=== PATIENT | female | born 1975 | race Hispanic/Latino ===

== ENCOUNTER 2025-03-07 17:50 | Emergency (ER) | payer SELFPAY ==
[~2025-03-07] VITALS: Ht 167.6 cm; Wt 90.7 kg
[2025-03-07 18:24] VITALS: TEMP 98.7
[2025-03-07] MEDS ORDERED: KETOROLAC TROMETHAMINE 30 MG/ML VIAL ONE (19:58)
[2025-03-07] MEDS ORDERED: SODIUM CHLORIDE 0.9% 1000ML 1,000 ML ONE (19:58)
[2025-03-07] MEDS ORDERED: CEFTRIAXONE 1 GM VIAL ONE (19:58)
[2025-03-07] MEDS: KETOROLAC TROMETHAMINE 30 MG/ML VIAL IV STA (20:03)
[2025-03-07] MEDS: SODIUM CHLORIDE 0.9% 1000ML 1,000 ML IV ONE (20:03)
[2025-03-07 20:11] LABS: BASOPHILS # (AUTO) 0.1 (0.0-0.1); BASOPHILS % 0.5 % (0.0-1.0); EOSINOPHILS # (AUTO) 0.2 (0.0-0.4); EOSINOPHILS % 1.8 % (0.0-6.0); HEMATOCRIT 39.3 % (34.2-44.1); HEMOGLOBIN 11.9 g/dL (12.0-16.0); LYMPHOCYTES # (AUTO) 2.8 (1.0-3.2); LYMPHOCYTES % 23.9 % (18.0-39.1); MEAN CORPUSCULAR HEMOGLOBIN 26.8 pg (28-32); MEAN CORPUSCULAR HGB CONC 30.3 g/dL (31-35); MEAN CORPUSCULAR VOLUME 88.5 fL (81-99); MONOCYTES # (AUTO) 1.1 (0.2-0.8); MONOCYTES % 9.3 % (4.4-11.3); NEUTROPHILS # (AUTO) 7.6 (2.1-6.9); NEUTROPHILS % 64.1 % (38.7-80.0); PLATELET COUNT 380 x10e3/uL (140-360); RED BLOOD COUNT 4.44 x10e6/uL (3.6-5.1); RED CELL DISTRIBUTION WIDTH 13.9 % (11.7-14.4); WHITE BLOOD COUNT 11.81 x10e3/uL (4.8-10.8)
[2025-03-07 20:33] LABS: BILIRUBIN,TOTAL 0.3 mg/dL (0.2-1.2); CALCIUM 9.7 mg/dL (8.4-10.2); TOTAL PROTEIN 8.2 g/dL (6.5-8.1)
[2025-03-07] MEDS ORDERED: IOPAMIDOL 370 MG/ML 100 ML INFUS..BTL INJ ONE (20:48)
[2025-03-07 22:54] VITALS: BP 132/76; PULSE 86; RESP 18; TEMP 98.2
[2025-03-07] MEDS: ONDANSETRON HCL INJ 2MG/ML 2ML 2 MG/ML VIAL IV STA (23:13)
[2025-03-07] MEDS: Morphine 4mg INJECTION 4 MG/ML INJ IV ONE (23:14)
[2025-03-07 23:32] VITALS: PULSE 84; RESP 16; O2SAT 100
== END 2025-03-07 23:32 | disposition other institution (70) ==
LOC: ER 19:53
DX: K12.2 Cellulitis and abscess of mouth (principal); K04.7 Periapical abscess without sinus
CPT/HCPCS: 36415; 70491; 80053; 84702; 85025; 87040; 99284; J0696; J1885; J2270; J2405; J7030; Q9967